=== PATIENT | female | born 1960 | race Caucasian/White ===

== ENCOUNTER 2017-03-17 08:20 | Outpatient (CLI) | payer OTHER ==
--- NOTE | 2017-03-17 10:22 | RAD ---
CERVICAL SPINE RADIOGRAPH SERIES: Comparison: 01-03-16 Clinical history: Spondylosis with cervical myelopathy. FINDINGS: There is multilevel anterior and posterior metallic fusion spanning C5 through C7 with anterior metal plate and vertebral body screws as well bilateral pedicle screws and bilateral vertical interconnect ing rods. There is an overlying surgical anchor from the patient's humerus which overlies the cervica l spine. There are intradiscal space devices at C5-6 and C6-7. There is a slight reversal of normal c ervical curvature. There is multilevel facet osteoarthritis and uncinate process hypertrophy. Degener ative hypertrophy is seen at the atlantodental articulation. There is no acute fracture seen. The shani ged aspects of the dens are intact. Lateral masses of C1 remain appropriate aligned. IMPRESSION: Post-operative cervical spine with multilevel degenerative change. No acute osseous abnormality or ev idence of acute hardware complication identified. POS: JEREMIAH
== END 2017-03-17 08:21 | disposition home or self-care (01) ==
LOC: TBSIIMAG 08:20
PROVIDERS: ATTEND Surgery
DX: M47.12 Other spondylosis with myelopathy, cervical region (principal); Z98.1 Arthrodesis status
CPT/HCPCS: 72040; 81003; 81015; 87077; 87086; 87186

== ENCOUNTER 2017-12-29 12:56 | Outpatient (CLI) | payer OTHER | END 2017-12-29 12:57 | disposition home or self-care (01) | LOC: BICMAMMO 12:56 | PROVIDERS: ATTEND Family Medicine | DX: Z12.31 Encounter for screening mammogram for malignant neoplasm of breast (principal); R92.1 Mammographic calcification found on diagnostic imaging of breast | CPT/HCPCS: 77063; 77067 ==

== ENCOUNTER 2019-05-15 12:24 | Outpatient (CLI) | payer OTHER ==
--- NOTE | 2019-05-15 14:28 | MMO ---
Bilateral MAMMO Bilat Screen [facility]. CLINICAL HISTORY: Patient is 58 years old and is seen for screening. The patient has no family history of breast cancer. The patient has no personal history of cancer. VIEWS: The views performed were: bilateral craniocaudal with tomosynthesis and bilateral mediolateral oblique with tomosynthesis. FILMS COMPARED: The present examination has been compared to prior imaging studies performed at [facility] on 03/02/2014, 09/23/2015, 09/23/2016 and 12/29/2017. This study has been interpreted with the assistance of computer-aided detection. MAMMOGRAM FINDINGS: The breasts are heterogeneously dense, which could obscure a lesion on mammography. There are no suspicious masses, suspicious calcifications, or new areas of architectural distortion. IMPRESSION: THERE IS NO MAMMOGRAPHIC EVIDENCE OF MALIGNANCY. A ROUTINE FOLLOW-UP MAMMOGRAM IN 1 YEAR IS RECOMMENDED. THE RESULTS OF THIS EXAM WERE SENT TO THE PATIENT. ACR BI-RADS Category 1 - Negative MAMMOGRAPHY NOTE: 1. A negative mammogram report should not delay a biopsy if a dominant of clinically suspicious mass is present. 2. Approximately 10% to 15% of breast cancers are not detected by mammography. 3. Adenosis and dense breasts may obscure an underlying neoplasm. Reported by: STARLA MIGUEL MD Electonically Signed: [id number]
== END 2019-05-15 12:25 | disposition home or self-care (01) ==
LOC: BICMAMMO 12:24
PROVIDERS: ATTEND Obstetrics & Gynecology
DX: Z12.31 Encounter for screening mammogram for malignant neoplasm of breast (principal)
CPT/HCPCS: 77063; 77067

== ENCOUNTER 2019-12-06 15:17 | Outpatient (CLI) | payer OTHER ==
--- NOTE | 2019-12-06 15:36 | RAD ---
Exam: XR Shoulder Lt 3 View STANDARD HISTORY: Acute left shoulder pain. COMPARISON: None FINDINGS: Postoperative changes left shoulder with single anchor screw overlying left humeral head is present. No fracture or dislocation is identified. Mild left acromioclavicular joint osteoarthritis is present. Postsurgical changes lower cervical spine related to anterior as well as posterior fusion are partial ly imaged. Median sternotomy wires are seen. Mild deformity of the left anterior fourth rib is present which is stable when compared to a chest x-ray in 2017, this may represent a remote fracture deformity. IMPRESSION: No acute osseous abnormality is identified. If there is concern for rotator cuff tear, MRI left shoul sylvie may be helpful for further evaluation.
== END 2019-12-06 15:18 | disposition home or self-care (01) ==
LOC: BICRAD 15:17
PROVIDERS: ATTEND Nurse Practitioner Family
DX: M25.512 Pain in left shoulder (principal)

== ENCOUNTER 2019-12-28 09:50 | Observation (INO) | payer OTHER ==
[2019-12-28] MEDS ORDERED: Iopamidol-370 76% 500 ML 1 ML ONE (10:32)
[2019-12-28 10:57] LABS: Hemoglobin 12.9 g/dL (12.0-16.0); Red Blood Cell (RBC) Count 4.28 mill/uL (4.20-5.40); White Blood Cell (WBC) Count 7.9 thou/uL (4.8-10.8)
[2019-12-28 10:58] LABS: #Basophils 0.1 thou/uL (0.0-0.2); #Eosinphils 0.1 thou/uL (0.0-0.7); #Monocytes 0.7 thou/uL (0.11-0.59); #Neutrophils 5.5 thou/uL (1.40-6.50); %Basophils 0.8 % (0.0-1.0); %Eosinophils 0.6 % (0.0-10.0); %Lymphocytes 19.8 % (21.0-51.0); %Monocytes 9.5 % (0.0-10.0); %Neutrophils 69.3 % (42.0-75.0); Mean Corpuscular HGB CONC 32.7 g/dL (32.0-36.0); Mean Corpuscular Volume 91.8 fL (78.0-98.0); Mean Platelet Volume 8.8 fL (7.4-10.4); Platelet Count 145 thou/uL (130-400); RBC Distribution Width 12.7 % (11.5-14.5)
[2019-12-28 10:59] LABS: MDiff Complete? YES
[2019-12-28 11:17] LABS: ALT (SGPT) 19 U/L (8-55); AST (SGOT) 20 U/L (5-34); Albumin 3.6 g/dL (3.4-4.8); Alkaline Phosphatase 51 U/L (40-110); Anion Gap 15 mmol/L (10-20); BUN (Urea Nitrogen) 17 mg/dL (9.8-20.1); Bilirubin, Total 0.5 mg/dL (0.2-1.2); Calc. Creatinine Clearance 0 mL/min (70-130); Calcium 8.8 mg/dL (7.8-10.44); Carbon Dioxide 25 mmol/L (23-31); Chloride 101 mmol/L (98-107); Estimated GFR-MDRD 75; Globulin 3.5 g/dL (2.4-3.5); Glucose 112 mg/dL (80-115); Potassium 4.7 mmol/L (3.5-5.1); Protein, Total 7.1 g/dL (6.0-8.3); Sodium 136 mmol/L (136-145)
--- NOTE | 2019-12-28 12:10 | CT ---
CTA Angio Head W WO Con CT angiogram neck CT brain without contrast History: Transient ischemic attack Comparison: MRI brain 2017 Findings: CT of the brain was performed without intravenous contrast. Next, CT angiogram of the head and neck performed after the intravenous administration of contrast. 3-D rendering provided. Prominent left-sided choroid fissure cyst. No acute hemorrhage or infarct. No midline shift or mass e ffect. Ventricular size and extra-axial CSF spaces are normal. Calvarium is intact. Paranasal sinuses and mastoids are clear. The lung apices are clear. Anterior and posterior spinal fusion hardware lower cervical spine. No acu te osseous abnormality. The vertebral arteries are codominant. No hemodynamically significant stenosis. Right common carotid artery is patent. Mild plaque of the carotid bulb. The right internal carotid ar chriss is patent. Left common carotid artery is patent. Mild atherosclerotic plaque of the left carotid bulb. The left internal carotid artery is patent. No hemodynamically significant stenosis per NASCET criteria. The [place] is without hemodynamically significant stenosis, thrombosis or aneurysm formatio n. Minimal narrowing of the origin right posterior indicating artery. Minimal narrowing of left A1. Impression: 1. No hemodynamically significant stenosis of the internal carotid arteries per NASCET criteria. 2. Minimal narrowing the left A1 and left posterior communicating arteries without hemodynamically si gnificant stenosis, thrombosis or aneurysm of the [place]. 3. No acute hemorrhage or infarct.
[2019-12-28 14:50] LABS: Troponin I 0.021 ng/mL (< 0.028)
[2019-12-28] MEDS ORDERED: Acetaminophen 325 MG TAB PO PRN (15:25)
[2019-12-28 16:26] VITALS: BMI 34.3
[2019-12-28] MEDS ORDERED: Aspirin 325 MG TAB PO SCH (17:30)
[2019-12-28 17:31] LABS: Troponin I 0.027 ng/mL (< 0.028)
[2019-12-28] MEDS ORDERED: HumaLOG 300 UNITS/3 ML VIAL SC PRN ×2 (18:05→21:54)
[2019-12-28] MEDS ORDERED: Dextrose 5% in Water 1,000 ML IV PRN (18:05)
[2019-12-28] MEDS ORDERED: Dextrose 50% Abboject 50 ML SYRINGE SLOW IVP PRN (18:05)
[2019-12-28] MEDS: Gabapentin 300 MG CAP PO SCH (20:16)
[2019-12-28] MEDS ORDERED: Atorvastatin Calcium 40 MG TAB PO SCH (21:00)
[2019-12-28] MEDS ORDERED: Rosuvastatin 10 MG TAB PO SCH (21:00)
--- NOTE | 2019-12-29 01:02 | HP ---
CHIEF COMPLAINT: Generalized weakness. HISTORY OF PRESENT ILLNESS: The patient is a 59-year-old female, with past medical history of CAD, diabetes, hypertension, and sleep apnea, who presents to the hospital with complaints of generalized weakness. The patient stated that she woke up this morning, felt just strange. She stated that she had this weird feeling going from her head to her bottom of her feet that she could not really explain. She then got very nauseous and throw up a couple times. She denies any diarrhea or any shortness of breath or chest pressure. At this time, she called her son who came over with EMS. He wanted her to be ruled out for possible TIA or stroke. The patient was noted to have a high blood pressure when the EMS was called and she was given some nitroglycerin and her blood pressure improved dramatically. The patient was noted to have some slurred speech. However, the patient states that she uses a BiPAP at night and sometimes her mouth gets really dry. She denied having any issues talking, any issues ambulating, or any numbness or tingling in her upper or lower extremities. PAST MEDICAL HISTORY: She has a history of CAD, hypertension, sleep apnea, and depression. She has psoriatic arthritis. PAST SURGICAL HISTORY: She has had CABG and triple bypass 15 years ago. She has had hysterectomy, , and rotator cuff and neck surgery. FAMILY HISTORY: No history of heart disease or stroke. ALLERGIES: SHE IS ALLERGIC TO HYDROCODONE, CIPRO, AND CYCLOBENZAPRINE. MEDICATIONS: She is on; 1. Plavix 75 mg daily. 2. Lexapro 10 mg daily. 3. Pantoprazole 40 mg daily. 4. Remicade every six weeks. 5. Gabapentin 300 mg b.i.d. 6. Altace 5 mg daily. 7. Coreg 25 mg b.i.d. 8. Ranexa 1000 mg b.i.d. 9. She is also on rosuvastatin 10 mg daily. LABORATORY DATA: WBCs of 7.9, hemoglobin of 12.9, hematocrit of 39.3, and platelets of 145. Chemistry; sodium 136, potassium of 4.7, BUN of 17, and creatinine 0.78. Troponins x3 were negative. Her EKG did not really show any acute abnormalities. She did have a CTA done, which just indicated narrowing of the left A1 and left posterior communicating arteries without any hemodynamically significant stenosis. ASSESSMENT AND PLAN: The patient is a very pleasant 59-year-old female, who presents to the hospital with complaints of generalized strange feeling. 1. Possible transient ischemic attack versus a stroke. The patient is already on Plavix. We will start her on aspirin. We will check a lipid panel. We will check a hemoglobin A1c. We will start her on aspirin for now. I will continue her statin. I will get Neurology to come see her. We will also get an MRI brain. She recently had an echocardiogram done at Dr. Jimenez office. We will get records from him. It was just about a month ago. 2. Diabetes. We will continue her home medications. 3. Hypertension. We will continue her home medications. 4. Deep venous thrombosis prophylaxis. We will put the patient on subcu Lovenox. Job ID: [id number]
[2019-12-29 03:52] VITALS: TEMP 97.5
[2019-12-29 04:31] LABS: Hemoglobin A1c 8.1 % (4.0-6.0)
[2019-12-29 04:42] LABS: Cardiac Risk 2.2 (Less than 4.5)
[2019-12-29] MEDS ORDERED: Diazepam 5 MG TAB PO SCH (08:15)
[2019-12-29] MEDS: Gabapentin 300 MG CAP PO SCH (08:35)
[2019-12-29] MEDS ORDERED: INSULIN GLARGINE SC SCH (09:00)
[2019-12-29] MEDS ORDERED: Aspirin 81 mg Enteric Coated Tablet PO SCH (09:00)
[2019-12-29] MEDS ORDERED: Clopidogrel Bisulfate 75 MG TAB PO SCH (09:00)
[2019-12-29] MEDS ORDERED: Pantoprazole 40 MG GRANULES PACKET PO SCH (09:00)
[2019-12-29] MEDS ORDERED: Ubidecarenone 50 MG CAP PO SCH (09:00)
[2019-12-29] MEDS ORDERED: INSULIN DEGLUDEC 75 UNIT SQ SCH (09:00)
[2019-12-29] MEDS ORDERED: Escitalopram Oxalate 10 mg Tablet PO SCH (09:00)
[2019-12-29] MEDS ORDERED: PRE FILLED SC SCH (09:00)
[2019-12-29] MEDS ORDERED: Enoxaparin Sodium 40 MG/0.4 ML SYRINGE SC SCH (09:00)
--- NOTE | 2019-12-29 09:53 | CT ---
CTA Angio Head W WO Con CT angiogram neck CT brain without contrast History: Transient ischemic attack Comparison: MRI brain 2017 Findings: CT of the brain was performed without intravenous contrast. Next, CT angiogram of the head and neck performed after the intravenous administration of contrast. 3-D rendering provided. Prominent left-sided choroid fissure cyst. No acute hemorrhage or infarct. No midline shift or mass e ffect. Ventricular size and extra-axial CSF spaces are normal. Calvarium is intact. Paranasal sinuses and mastoids are clear. The lung apices are clear. Anterior and posterior spinal fusion hardware lower cervical spine. No acu te osseous abnormality. The vertebral arteries are codominant. No hemodynamically significant stenosis. Right common carotid artery is patent. Mild plaque of the carotid bulb. The right internal carotid ar chriss is patent. Left common carotid artery is patent. Mild atherosclerotic plaque of the left carotid bulb. The left internal carotid artery is patent. No hemodynamically significant stenosis per NASCET criteria. The [place] is without hemodynamically significant stenosis, thrombosis or aneurysm formatio n. Minimal narrowing of the origin right posterior indicating artery. Minimal narrowing of left A1. Impression: 1. No hemodynamically significant stenosis of the internal carotid arteries per NASCET criteria. 2. Minimal narrowing the left A1 and left posterior communicating arteries without hemodynamically si gnificant stenosis, thrombosis or aneurysm of the [place]. 3. No acute hemorrhage or infarct. Transcribed Date/Time: 12/29/2019 9:52 AM
--- NOTE | 2019-12-29 10:08 | MRI ---
Exam: Brain MRI without contrast HISTORY: CVA. Dizziness. Headache. COMPARISON: 11/06/2016 FINDINGS: Calvarial marrow signal intensity: Appropriate T1 signal Gradient echo sequence: No hemorrhage Brain parenchyma: No mass, mass effect or midline shift. Brain volume, age-appropriate. Cortical martinez-white matter differentiation: Preserved Restricted diffusion: Central arterial flow voids are maintained. Absent restricted diffusion White matter signal intensities:Minimal scattered T2, FLAIR white matter hyperintensities due to student union consultant jayy small vessel ischemic changes Sinuses: Adequate aeration of the paranasal sinuses and mastoid air cells. IMPRESSION: Absent restricted diffusion. No acute infarct.
--- NOTE | 2019-12-29 12:23 | CON ---
NEUROLOGY CONSULTATION DATE OF CONSULTATION: 12/29/2019 REASON FOR CONSULTATION: Episode of weird feeling and generalized weakness. HISTORY OF PRESENT ILLNESS: Ms. Ruth Whitt is a 59-year-old female with medical history significant for coronary artery disease, diabetes, hypertension, obstructive sleep apnea, presented to the hospital with a strange feeling that lasted for about 10 to 15 minutes all over a body followed by difficulty to ambulate. The patient also felt very nauseous during that time and had vomiting a couple of times. She called her son, who came to check on her and decided to call the EMS to bring her to the hospital to rule out stroke. When she arrived to the emergency room, her blood pressure was high. She was given nitroglycerin. The son also noticed slurred speech, but the patient denies focal weakness, focal paresthesias. She does report nausea, vomiting, headache, but denies chest pain , abdominal pain. She reports slurred speech, but denies difficulty swallowing, loss of vision, blurred vision, loss of consciousness, abnormal body movements, or recent illness associated with the episode. The patient does feel little bit lightheaded, but most of the symptoms were resolved. She takes Plavix daily, but has been taken off aspirin and her blood pressure medication recently because of low blood pressure by a dental resident. REVIEW OF SYSTEMS: All 14 systems were reviewed and were negative except for the pertinent positive and negative mentioned in the HPI. PAST MEDICAL HISTORY: 1. Coronary artery disease. 2. Hypertension. 3. Obstructive sleep apnea. 4. Depression. 5. Psoriatic arthritis. PAST SURGICAL HISTORY: 1. CABG and triple bypass 15 years ago. 2. Hysterectomy. 3. . 4. Rotator cuff and neck surgeries. FAMILY HISTORY: No family history of stroke or heart disease. ALLERGIES: HYDROCODONE, CIPROFLOXACIN, CYCLOBENZAPRINE. HOME MEDICATIONS: 1. Plavix 75 mg daily. 2. Pantoprazole 40 mg daily. 3. Lexapro 10 mg daily. 4. Remicade every 6 weeks. 5. Gabapentin 300 mg p.o. b.i.d. 6. Altace 5 mg daily. 7. Coreg 25 mg b.i.d. 8. Ranexa 1000 mg b.i.d. Physical examination Blood pressure 131/71 HR 78 RR 18 General: Alert awake female in no acute distress CVS: Regular rate and rhythm Chest: Clear Abdomen: Soft Extremities: No clubbing cyanosis or edema. Neurological examination:. Mental status: Patient is alert and oriented to person place and time. Speech is clear. Recent and remote memory intact. Fund of knowledge is appropriate Cranial nerves. 2 through 12 intact Sensory: Intact Cerebellar: Finger-nose testing intact Motor: Muscle tone and bulk are normal strength 5 / 5 bilaterally. Gait: Deferred due to patient safety reasons. DATA REVIEWED: I reviewed the head CT, which was negative for acute intracranial pathology. I also reviewed the CTA of the head and neck, which were negative for hemodynamically significant stenosis. ASSESSMENT AND PLAN: Ms. Whitt is a pleasant 59-year-old female, who presented with the episode of strange feeling and an inability to walk associated with generalized weakness, which resolved on its own. Most likely, it is a transient ischemic attack. MRI of the brain reviewed, which was negative for acute intracranial pathology. CTA of the head and neck did not reveal hemodynamically significant stenosis. Restart aspirin 81 mg daily for secondary stroke prevention. Continue statin for secondary stroke prevention. Continue home medications. Neuro checks every 4 hours. The patient had a recent echocardiogram done at Dr. Jimenez office No thrombus or PFO. No need to repeat the echocardiogram. Telemetry. PT/OT/Speech. Strict control of blood pressure and blood glucose. DVT prophylaxis. EEG to evaluate for the strange feeling to rule out cortical irritability is negative for seizure activity.. Continue home medications. Continue medical management per primary team. Plan discussed in detail with the patient and with the nursing staff during MD rounds. Job ID: [id number] MTDD
[2019-12-29 12:24] VITALS: BP 131/71
--- NOTE | 2019-12-29 13:13 | EEG ---
DATE OF SERVICE: 12/29/2019 ATTENDING PHYSICIAN: Meli Dominguez MD This EEG was performed using 24-channel [employer] video digital EEG machine with 24-disk electrodes. This was an extended 2 hours 6 minutes of inpatient video EEG recording. Digital analysis of the EEG was done for spike and seizure detection which revealed no abnormalities. BACKGROUND: The posterior background rhythm is 9 to 10 Hz. The background rhythm attenuates with eye opening and enhances with eye closure. HYPERVENTILATION: Not performed. PHOTIC STIMULATION: Bioccipital symmetric driving response is observed. SLEEP: Drowsiness and sleep are observed. EEG DIAGNOSIS: Normal awake, drowsy, and sleep EEG. Job ID: [id number]
[2019-12-29 13:49] LABS: SARS-CoV-2 MS2 Positive; SARS-CoV-2 N Gene Negative; SARS-CoV-2 S Gene Negative; SARS-CoV-2 by NAA Not Detected (NotDetected); SARS-CoV-2 orf1ab Negative
--- NOTE | 2019-12-30 01:56 | DIS ---
DATE OF ADMISSION: 12/28/2019 DATE OF DISCHARGE: 12/29/2019 DISCHARGE DIAGNOSES: 1. Transient ischemic attack. 2. Generalized weakness. 3. Hypertension. 4. Diabetes. HOSPITAL COURSE: The patient is a 59-year-old female, who initially presented to the hospital for generalized weakness, possible some slurred speech. However, she contributed due to her dryness from the CPAP machine. She underwent a stroke workup indicated a CTA, which showed that the patient had a minimal narrowing of the left A1 and the left posterior communicating artery without any hemodynamically significant stenosis. She also had an MRI brain, which indicated absent restricted diffusion. No acute infarct. She had a recent echocardiogram that was done at Dr. Jimenez's office and it appeared stable. She was seen by Neurology, had an EEG, which was negative. She will be discharged home. She will follow up with her primary care doctor. The only additional thing is aspirin. MEDICATIONS: Her home medications will be as of the following; 1. Crestor 10 mg daily. 2. Ramipril 5 mg daily. 3. Furosemide 40 mg as needed. 4. Protonix 20 mg daily. 5. Plavix 75 mg daily. 6. Ranexa 1000 mg b.i.d. 7. Remicade every six weeks. 8. Insulin 75 units daily. 9. Vascepa two capsules b.i.d. 10. Gabapentin 300 mg t.i.d. PHYSICAL EXAMINATION: VITAL SIGNS: On discharge, temperature of 97.8, pulse rate 81, respiratory rate 18, 96% on room air, and blood pressure 131/71. GENERAL: She is awake, alert, and oriented x3. Does not appear in distress. CV: S1 and S2 present. No murmurs, rubs, or gallops. ABDOMEN: Soft and nontender. Bowel sounds are present x2. Again, she will be discharged home. She will follow up with her primary. Job ID: [id number]
== END 2019-12-29 14:12 | disposition home or self-care (01) ==
LOC: ERS 09:50 → 2SE 14:04
PROVIDERS: ADMIT Internal Medicine; ATTEND Internal Medicine
DX: G45.9 Transient cerebral ischemic attack, unspecified (principal); I10 Essential (primary) hypertension; E11.9 Type 2 diabetes mellitus without complications; I25.10 Atherosclerotic heart disease of native coronary artery without angina pectoris; G47.33 Obstructive sleep apnea (adult) (pediatric); F32.9 Major depressive disorder, single episode, unspecified; L40.50 Arthropathic psoriasis, unspecified; Z79.02 Long term (current) use of antithrombotics/antiplatelets; Z79.4 Long term (current) use of insulin; Z79.899 Other long term (current) drug therapy; Z88.1 Allergy status to other antibiotic agents; Z88.5 Allergy status to narcotic agent; Z88.8 Allergy status to other drugs, medicaments and biological substances; Z95.1 Presence of aortocoronary bypass graft; Z20.828 Contact with and (suspected) exposure to other viral communicable diseases
CPT/HCPCS: 36415; 36416; 70496; 70498; 70551; 80053; 80061; 83036; 84484; 85025; 87635; 93005; 94760; 95712; 95816; 95819; 95957; 96372; G0378; J1650; J1815; Q9967; U0003

== ENCOUNTER 2020-08-05 13:48 | Outpatient (CLI) | payer BC | END 2020-08-05 13:49 | disposition home or self-care (01) | LOC: BICMAMMO 13:48 | PROVIDERS: ATTEND Family Medicine | DX: Z12.31 Encounter for screening mammogram for malignant neoplasm of breast (principal) | CPT/HCPCS: 77063; 77067 ==

== ENCOUNTER 2021-10-22 09:05 | Outpatient (CLI) | payer BC | END 2021-10-22 09:06 | disposition home or self-care (01) | LOC: BICMAMMO 09:05 | PROVIDERS: ATTEND Family Medicine | DX: Z12.31 Encounter for screening mammogram for malignant neoplasm of breast (principal) | CPT/HCPCS: 77063; 77067 ==